=== PATIENT | female | born 1965 | race Hispanic/Latino ===

== ENCOUNTER 2017-09-20 09:11 | Emergency (ER) | payer BC ==
[~2017-09-20] VITALS: Ht 147.3 cm; Wt 72.6 kg
[~2017-09-20 09:11] MED LIST: AMLODIPINE-BEN1 EAC1 PO; CLARINEX5 MG PO
--- NOTE | 2017-09-20 10:53 | Diagnostic Imaging Report ---
PROCEDURE:X-RAY RIGHT FOOT, COMPLETE COMPARISON:None. INDICATIONS:RIGHT FOOT PAIN FINDINGS: No acute, displaced fracture or dislocation. Appropriate alignment between the medial cuneiform and second metatarsal base in keeping with an intact Lisfranc ligament. Surgical anchor and cortical irregularity within the navicular. Scattered degenerative changes throughout mid foot. No focal soft tissue abnormalities. CONCLUSION: No acute osseous abnormalities. Dictated by: Yony Stanford M.D. on 09/20/2017 at 10:57 Electronically approved by: Yony Stanford M.D. on 09/20/2017 at 10:57
[2017-09-20 11:49] VITALS: BP 131/70
== END 2017-09-20 12:00 | disposition home or self-care (01) ==
LOC: ER 09:11
DX: M25.571 Pain in right ankle and joints of right foot (principal); M77.9 Enthesopathy, unspecified; R26.89 Other abnormalities of gait and mobility; I10 Essential (primary) hypertension
CPT/HCPCS: 99283

== ENCOUNTER → 2017-09-21 | Outpatient (CLI) | payer BC ==
--- NOTE | 2017-09-21 11:39 | Diagnostic Imaging Report ---
TECHNIQUE: Magnetic resonance imaging of the RIGHT ANKLE was performed WITHOUT injected contrast. COMPARISON: None available. HISTORY: Right ankle pain FINDINGS: LIGAMENTS: Medial Complex: Intact Lateral Complex: Prior partial tear of the anterior talofibular ligament with attenuation/thinning. Otherwise intact. TENDONS: Medial: Postsurgical changes at the navicular. Posterior tibial and flexor tendons appear intact. Lateral: Peroneal tendons intact. Anterior: Anterior tibial and extensor tendons intact. Achilles: Achilles tendon intact. BONES: Hindfoot bone marrow edema within the talus and calcaneus. JOINTS: Cartilage: No focal defect is identified involving the tibiotalar joint. Other: Small ankle and subtalar joint effusion. SOFT TISSUES: Thickening of the central cord of the plantar fascia without edema. IMPRESSION: Hindfoot bone marrow edema within the talus and calcaneus. Etiology is indeterminate but may be related to stress response. Small ankle and subtalar joint effusion. Signed by: Dr. Javier Evangelista M.D. on 09/21/2017 11:35 AM
== END ==
LOC: MRI 09:33
PROVIDERS: ATTEND Podiatrist Foot & Ankle Surgery
DX: S93.411A Sprain of calcaneofibular ligament of right ankle, initial encounter (principal)

== ENCOUNTER → 2017-11-20 | Day surgery (SDC) | payer BC ==
--- NOTE | 2017-11-16 17:55 | Diagnostic Imaging Report ---
EXAMINATION: CHEST 2 VIEWS INDICATION: \S\MD ORDER \[id number] \S\[id number] \S\PRE ADMIT COMPARISON: 02/07/2017 FINDINGS: PA and lateral views TUBES and LINES: None. LUNGS: Lungs are well inflated. Lungs are clear. There is no evidence of pneumonia or pulmonary edema. PLEURA: No pleural effusion or pneumothorax. HEART AND MEDIASTINUM: The cardiomediastinal silhouette is unremarkable. BONES AND SOFT TISSUES: No acute osseous lesion. Soft tissues are unremarkable. UPPER ABDOMEN: No free air under the diaphragm. Cholecystectomy clips. IMPRESSION: No acute thoracic abnormality. Signed by: Dr. Slime Valle M.D. on 11/16/2017 3:40 PM
[~2017-11-20] MED LIST changes: +ACETAMINOPHEN 1000 MG/100 ML IV ONE; +BENAZEPRIL HCL10 MG PO; +BUPIVACAINE HCL 0.5% INJ 30 ML VIAL INJ ONE; +CEFAZOLIN SOD 1 GM VIAL ONE; +DEXAMETHASONE SOD PHOS INJ 4 MG/ML VIAL ONE; +FENTANYL CITRATE/PF 100MCG/2 ML INJ ONE; +LIDOCAINE HCL 2% LOCAL INJ 5 ML SDV VIAL INJ ONE; +MIDAZOLAM HCL 2 MG/2 ML VIAL ONE; +ONDANSETRON HCL INJ 2 MG/ML VIAL ONE; +PROPOFOL IV EMULSION 10 MG/ML 20 ML VIAL ONE; +SEVOFLURANE INHAL SOLN 250 ML PEN BTL ONE; +SINGULAIR10 MG PO
[2017-11-20 08:35] VITALS: BP 122/62
--- NOTE | 2017-11-21 14:44 | Operative Report ---
DATE OF PROCEDURE: November 20, 2017 PREOPERATIVE DIAGNOSES 1. Ruptured right anterior talofibular ligament. 2. Ganglion cyst. POSTOPERATIVE DIAGNOSIS: Ruptured right anterior talofibular ligament. PLANNED PROCEDURES 1. Right Brostrom procedure. 2. Excision of ganglion cyst. DIRECTOR STAGE: Dr. Mauricio DPM. ANESTHESIA: General with a postoperative block consisting of 10 mL of 0.5% Marcaine plain mixed with 1 mL of dexamethasone phosphate. HEMOSTASIS: Pneumatic thigh tourniquet set at 350 mmHg for a total time of approximately 30 minutes. MATERIALS: One Mitek bone anchor with 2-0 Ethibond, 3-0 Vicryl, 4-0 nylon. One size 2 Mitek anchor. PATHOLOGY: None. ESTIMATED BLOOD LOSS: Less than 10 mL. DETAILS OF PROCEDURE: Patient was seen in the preoperative waiting where the correct procedure and site was identified. The patient was brought to the operating room and placed on the operating table in the supine position. General anesthesia was initiated at this time. A well-padded pneumatic tourniquet was placed about the patient's right thigh. The right foot, ankle and leg was then scrubbed, prepped and draped in the usual aseptic manner. The right foot, ankle and leg was exsanguinated with an Esmarch bandage, and the pneumatic thigh tourniquet was inflated to 350 mmHg for a total time of approximately 30 minutes. Attention was directed to the anterolateral aspect of the patient's right ankle where a J-type incision was made over the anterior aspect of the fibula extending distally to the distal tip of the fibula. The incision was carried through the subcutaneous tissues them from deeper underlying structures. All vital neurovascular structures were identified and retracted medially and laterally. All bleeders were cauterized or ligated as deemed necessary. At this time, the ankle capsule was identified, and again a J-type incision was made over the anterior talofibular ligament, as well as thickening of the anterolateral joint capsule. Upon examination of the area, there was noted to be a ganglion cyst approximately 1 cm x 1 cm x 1 cm in the lateral aspect of the ankle and sinus tarsi region. This was carefully dissected and passed off to the back table. The anterior talofibular ligament was identified and was noted to be attenuated and partially ruptured with nonviable border. The decision was made to proceed with a Brostrom procedure with a anchor. Utilizing planishing hammer operator protocol, the anterior aspect of the fibula was roughened, and a size 2 Mitek bone anchor was drilled and placed. The anterior talofibular ligament, as well as the ankle joint capsule was reapproximated and tagged while holding the foot in a dorsiflexed and everted position. The remaining aspect of the capsule was reapproximated in a pants over vest type fashion with Ethibond suture. Subcutaneous tissue was reapproximated with 3-0 Vicryl, and the skin was closed using a running interlocking stitch with 4-0 nylon. The patient tolerated the procedure and anesthesia well. Patient was transferred to the postoperative recovery unit with vital signs stable and vascular status intact. The patient was monitored there for a short period time before being sent home with the following written and oral instructions: 1. Keep the dressing clean, dry and intact. 2. The patient is to remain nonweightbearing to the right lower extremity and to avoid excessive ambulation until being seen in the office. 3. The patient was given the office number and instructed to contact us if any problems should arise. Job#: [id number] TRISH
== END | disposition home or self-care (01) ==
LOC: OR 05:20
PROVIDERS: ATTEND Podiatrist Foot & Ankle Surgery
DX: S93.491A Sprain of other ligament of right ankle, initial encounter (principal); M67.471 Ganglion, right ankle and foot; I10 Essential (primary) hypertension; J30.2 Other seasonal allergic rhinitis; X58.XXXA Exposure to other specified factors, initial encounter; Z01.810 Encounter for preprocedural cardiovascular examination; Z01.818 Encounter for other preprocedural examination
CPT/HCPCS: 27695; 71046; 93005; J0690; J1100; J2001; J2250; J2405

== ENCOUNTER 2021-09-29 14:48 | Outpatient (RCR) | payer BC ==
[~2021-09-29 14:48] MED LIST changes: -ACETAMINOPHEN 1000 MG/100 ML IV ONE; -BUPIVACAINE HCL 0.5% INJ 30 ML VIAL INJ ONE; -CEFAZOLIN SOD 1 GM VIAL ONE; -DEXAMETHASONE SOD PHOS INJ 4 MG/ML VIAL ONE; -FENTANYL CITRATE/PF 100MCG/2 ML INJ ONE; -LIDOCAINE HCL 2% LOCAL INJ 5 ML SDV VIAL INJ ONE; -MIDAZOLAM HCL 2 MG/2 ML VIAL ONE; -ONDANSETRON HCL INJ 2 MG/ML VIAL ONE; -PROPOFOL IV EMULSION 10 MG/ML 20 ML VIAL ONE; -SEVOFLURANE INHAL SOLN 250 ML PEN BTL ONE
== END 2021-10-23 ==
LOC: PT 14:48
PROVIDERS: ATTEND Podiatrist Foot & Ankle Surgery
DX: M72.2 Plantar fascial fibromatosis (principal)
CPT/HCPCS: 97139

== ENCOUNTER → 2021-11-23 | Day surgery (SDC) | payer BC ==
[~2021-11-23] MED LIST changes: +ACETAMINOPHEN 1000 MG/100 ML 100 ML IV ONE; +ATROPINE SULFATE 1 MG/ML VIAL ONE; +BUPIVACAINE HCL 0.25% 10ML MPF VIAL INJ ONE; +DEXAMETHASONE SOD PHOS INJ 4 MG/ML SDV ONE; +FENTANYL CITRATE/PF 100MCG/2 ML INJ ONE; +GLYCOPYRROLATE INJ 0.2 MG/ML VIAL ONE; +KETOROLAC TROMETHAMINE 30 MG/ML VIAL ONE; +LIDOCAINE HCL 2% LOCAL INJ 5 ML SDV VIAL INJ ONE; +MIDAZOLAM HCL 2 MG/2 ML VIAL ONE; +ONDANSETRON HCL INJ 2MG/ML 2ML 2 MG/ML VIAL ONE; +PAROXETINE HCL10 MG PO; +POVIDONE IODINE 0.05% 0.05 % ML PO ONE; +PROPOFOL IV EMULSION 10 MG/ML 20 ML VIAL ONE; +SEVOFLURANE INHAL SOLN 250 ML PEN BTL ONE; +VITAMIN D3125 MCG PO
[2021-11-23 09:35] VITALS: BP 125/79
== END | disposition home or self-care (01) ==
LOC: OR 05:41
PROVIDERS: ATTEND Podiatrist Foot & Ankle Surgery
DX: M77.32 Calcaneal spur, left foot (principal); M72.2 Plantar fascial fibromatosis; I10 Essential (primary) hypertension; E66.9 Obesity, unspecified; F41.9 Anxiety disorder, unspecified; Z88.6 Allergy status to analgesic agent; Z01.810 Encounter for preprocedural cardiovascular examination; Z01.812 Encounter for preprocedural laboratory examination; Z01.818 Encounter for other preprocedural examination; Z20.822 Contact with and (suspected) exposure to COVID-19; Z79.899 Other long term (current) drug therapy; Z68.36 Body mass index [BMI] 36.0-36.9, adult
CPT/HCPCS: 0223U; 28119; 36415; 71046; 93005; J0131; J0461; J0690; J1100; J1885; J2001; J2250; J2405; J2704; J3010